=== PATIENT | female | born 2000 | race Caucasian/White ===

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

== ENCOUNTER 2020-12-12 05:19 | Emergency (ER) | payer BC, MEDICAID, SELFPAY ==
[~2020-12-12] VITALS: Ht 157.5 cm; Wt 88.2 kg
[~2020-12-12 05:19] MED LIST changes: -CIPR0.3S AS; +CIPR0.3S6 AS; +MAPA500T2 PO; +ONDA-83 PO; -ONDA4TAB5 PO
[2020-12-12] MEDS ORDERED: ACETAMINOPHEN *IV* 1,000 MG in IV 1 EA IV ONE (05:40)
[2020-12-12 05:53] LABS: BASO % 0.2 % (0.0-1.0); EOS # 0.1 10^3/uL (0.0-0.5); EOS % 1.3 % (0.0-3.0); HEMATOCRIT 41.2 % (36.0-47.0); HEMOGLOBIN 13.7 g/dl (12.0-15.5); LYMPH # 1.4 10^3/uL (1.5-5.0); LYMPH % 12.6 % (24.0-44.0); MEAN CORPUSCULAR HEMOGLOBIN 29.1 pg (27.0-33.0); MEAN CORPUSCULAR HGB CONC 33.3 g/dl (32.0-36.5); MEAN CORPUSCULAR VOLUME 87.5 fl (80.0-96.0); MONO # 1.2 10^3/uL (0.0-0.8); NEUTROPHILS # 8.2 10^3/uL (1.5-8.5); NEUTROPHILS % 74.5 % (36.0-66.0); PLATELET COUNT, AUTOMATED 318 10^3/uL (150-450); RED BLOOD COUNT 4.71 10^6/uL (4.00-5.40)
[2020-12-12 06:28] LABS: ALBUMIN 3.7 GM/DL (3.2-5.2); ALT/SGPT 25 U/L (12-78); BILIRUBIN,DIRECT 0.2 MG/DL (0.0-0.2); BILIRUBIN,TOTAL 0.6 MG/DL (0.2-1.0); BLOOD UREA NITROGEN 11 MG/DL (7-18); CALCIUM LEVEL 8.8 MG/DL (8.5-10.1); CARBON DIOXIDE LEVEL 25 MEQ/L (21-32); CHLORIDE LEVEL 106 MEQ/L (98-107); CREATININE FOR GFR 0.51 MG/DL (0.55-1.30); GLUCOSE, FASTING 101 MG/DL (70-100); LIPASE 77 U/L (73-393); POTASSIUM SERUM 3.7 MEQ/L (3.5-5.1); SODIUM LEVEL 138 MEQ/L (136-145); TOTAL PROTEIN 7.1 GM/DL (6.4-8.2)
[2020-12-12 07:00] VITALS: BP 118/73
--- NOTE | 2020-12-12 07:22 | REPVR ---
PROCEDURE INFORMATION: Exam: XR Chest Exam date and time: 12/12/2020 6:30 AM Age: 20 years old Clinical indication: Other: Chest pain, vomiting TECHNIQUE: Imaging protocol: XR of the chest Views: 1 view. COMPARISON: No relevant prior studies available. FINDINGS: Lungs: Unremarkable. No consolidation. Pleural spaces: Unremarkable. No pleural effusion. No pneumothorax. Heart/Mediastinum: Unremarkable. No cardiomegaly. Bones/joints: Unremarkable. IMPRESSION: No evidence for acute pulmonary disease. Electronically signed by: Severo Rosado On 12/12/2020 07:22:27 AM
--- NOTE | 2020-12-12 07:42 | ECGEPIP ---
[facility] - ED Test Date: 2020-12-12 Pat Name: FRANSISCO OCONNELL Department: Room: - Gender: Female Hand Inspector: MARY : 2000 Requested By: Fransisco Christianson Order Number: [id number] Reading MD: Soraida Ansari Measurements Intervals Purvis Rate: 104 P: 50 NM: 144 QRS: 66 QRSD: 76 T: 34 QT: 344 QTc: 452 Interpretive Statements Sinus tachycardia No prior Electronically Signed on 12-12-2020 7:42:07 EDT by Soraida Ansari
== END 2020-12-12 06:50 | disposition home or self-care (01) ==
LOC: M ED 05:19
DX: O99.891 Other specified diseases and conditions complicating pregnancy (principal); R07.89 Other chest pain; O99.341 Other mental disorders complicating pregnancy, first trimester; F39 Unspecified mood [affective] disorder; Z91.048 Other nonmedicinal substance allergy status; Z91.040 Latex allergy status; Z91.018 Allergy to other foods; Z3A.10 10 weeks gestation of pregnancy
CPT/HCPCS: 36415; 71045; 80048; 80076; 83690; 84484; 85025; 85379; 93005; 93041; 94760; 96365; 99284; J0131

== ENCOUNTER 2021-01-05 12:24 | Emergency (ER) | payer BC, SELFPAY ==
[~2021-01-05] VITALS: Ht 157.5 cm; Wt 91.8 kg
[2021-01-05] MEDS ORDERED: MULTTAB20 PO (12:38)
[2021-01-05 13:30] LABS: APPEARANCE, URINE HAZY (CLEAR); BACTERIA, URINE AUTO NEGATIVE (NEGATIVE); BASO % 0.5 % (0.0-1.0); BILIRUBIN, URINE AUTO NEGATIVE (NEGATIVE); BLOOD, URINE BLOOD 3+ (NEGATIVE); COLOR, URINE YELLOW (YELLOW); EOS # 0.2 10^3/uL (0.0-0.5); EOS % 2.2 % (0.0-3.0); GLUCOSE, URINE (UA) AUTO NEGATIVE (NEGATIVE); HEMATOCRIT 41.2 % (36.0-47.0); HEMOGLOBIN 13.7 g/dl (12.0-15.5); KETONE, URINE AUTO NEGATIVE (NEGATIVE); LEUKOCYTE ESTERASE, URINE AUTO NEGATIVE (NEGATIVE); LYMPH # 1.8 10^3/uL (1.5-5.0); LYMPH % 24.2 % (24.0-44.0); MEAN CORPUSCULAR HEMOGLOBIN 29.3 pg (27.0-33.0); MEAN CORPUSCULAR HGB CONC 33.3 g/dl (32.0-36.5); MEAN CORPUSCULAR VOLUME 88.2 fl (80.0-96.0); MONO # 0.5 10^3/uL (0.0-0.8); MONO % 7.1 % (2.0-8.0); MUCUS, URINE LARGE (NEGATIVE); NEUTROPHILS # 4.8 10^3/uL (1.5-8.5); NEUTROPHILS % 65.6 % (36.0-66.0); NITRITE, URINE AUTO NEGATIVE (NEGATIVE); PLATELET COUNT, AUTOMATED 315 10^3/uL (150-450); PROTEIN, URINE AUTO NEGATIVE (NEGATIVE); RBC, URINE AUTO 64 /HPF (0-3); RED BLOOD COUNT 4.67 10^6/uL (4.00-5.40); SPECIFIC GRAVITY URINE AUTO 1.026 (1.002-1.035); SQUAMOUS EPITHELIAL CELL UR AU 2 /HPF (0-6); UROBILINOGEN, URINE AUTO 0.2 mg/dL (0.0-2.0); WBC, URINE AUTO 1 /HPF (0-3); WHITE BLOOD COUNT 7.4 10^3/uL (4.0-10.0)
[2021-01-05 13:51] LABS: BLOOD UREA NITROGEN 12 MG/DL (7-18); CALCIUM LEVEL 9.1 MG/DL (8.5-10.1); CARBON DIOXIDE LEVEL 25 MEQ/L (21-32); CHLORIDE LEVEL 109 MEQ/L (98-107); CREATININE FOR GFR 0.51 MG/DL (0.55-1.30); GLUCOSE, FASTING 91 MG/DL (70-100); POTASSIUM SERUM 4.1 MEQ/L (3.5-5.1); SODIUM LEVEL 140 MEQ/L (136-145)
[2021-01-05 14:15] LABS: HCG, SERUM QUANTITATIVE < 1.0 MIU/ML
[2021-01-05 15:09] VITALS: BP 119/67
== END 2021-01-05 15:17 | disposition home or self-care (01) ==
LOC: M ED 12:24
DX: N93.8 Other specified abnormal uterine and vaginal bleeding (principal); Z91.018 Allergy to other foods; Z91.040 Latex allergy status; Z91.048 Other nonmedicinal substance allergy status

== ENCOUNTER → 2021-09-22 | Outpatient (CLI) | payer BC ==
[~2021-09-22] MED LIST changes: +MULTTAB20 PO
== END ==
LOC: M LABSMTC 12:39
PROVIDERS: ATTEND Pediatrics
DX: Z11.52 Encounter for screening for COVID-19 (principal); Z20.822 Contact with and (suspected) exposure to COVID-19
CPT/HCPCS: C9803; U0003

== ENCOUNTER 2021-11-10 18:29 | Emergency (ER) | payer BC ==
[~2021-11-10] VITALS: Ht 165.1 cm; Wt 98.7 kg
[2021-11-10 21:53] LABS: URINE PREG TEST NEGATIVE (NEGATIVE)
[2021-11-10 22:07] LABS: HEMATOCRIT 41.9 % (36.0-47.0); HEMOGLOBIN 13.8 g/dl (12.0-15.5); MEAN CORPUSCULAR HEMOGLOBIN 29.6 pg (27.0-33.0); MEAN CORPUSCULAR HGB CONC 32.9 g/dl (32.0-36.5); MEAN CORPUSCULAR VOLUME 89.7 fl (80.0-96.0); PLATELET COUNT, AUTOMATED 318 10^3/uL (150-450); RED BLOOD COUNT 4.67 10^6/uL (4.00-5.40); WHITE BLOOD COUNT 8.5 10^3/uL (4.0-10.0)
[2021-11-10 22:48] VITALS: BP 124/70
[2021-11-10] MEDS ORDERED: BACTRIM 160MG/800MG DS TAB PO ONE (23:30)
[2021-11-10] MEDS ORDERED: BACT800T5 PO (23:33)
[2021-11-11 00:24] LABS: GC DNA AMPLIFICATION NEGATIVE (NEGATIVE)
== END 2021-11-10 23:50 | disposition home or self-care (01) ==
LOC: M ED 18:29
DX: N39.0 Urinary tract infection, site not specified (principal); J45.909 Unspecified asthma, uncomplicated; F33.9 Major depressive disorder, recurrent, unspecified; F41.9 Anxiety disorder, unspecified; E66.9 Obesity, unspecified; Z91.018 Allergy to other foods; Z91.040 Latex allergy status; Z91.048 Other nonmedicinal substance allergy status; Z77.098 Contact with and (suspected) exposure to other hazardous, chiefly nonmedicinal, chemicals; F12.20 Cannabis dependence, uncomplicated

== ENCOUNTER 2022-01-30 20:17 | Emergency (ER) | payer BC ==
[~2022-01-30] VITALS: Ht 157.5 cm; Wt 93.1 kg
[~2022-01-30 20:17] MED LIST changes: +BACT800T5 PO
[2022-01-30 20:19] VITALS: BP 152/80
[2022-01-30 22:31] LABS: HEMATOCRIT 41.9 % (36.0-47.0); HEMOGLOBIN 13.7 g/dl (12.0-15.5); MEAN CORPUSCULAR HGB CONC 32.7 g/dl (32.0-36.5); MEAN CORPUSCULAR VOLUME 91.9 fl (80.0-96.0); PLATELET COUNT, AUTOMATED 328 10^3/uL (150-450); RED BLOOD COUNT 4.56 10^6/uL (4.00-5.40); WHITE BLOOD COUNT 10.4 10^3/uL (4.0-10.0)
[2022-01-30 23:00] LABS: BLOOD UREA NITROGEN 7 MG/DL (7-18); CALCIUM LEVEL 9.3 MG/DL (8.5-10.1); CARBON DIOXIDE LEVEL 30 MEQ/L (21-32); CHLORIDE LEVEL 109 MEQ/L (98-107); CREATININE FOR GFR 0.66 MG/DL (0.55-1.30); GLOMERULAR FILTRATION RATE > 60.0 (>60); GLUCOSE, FASTING 85 MG/DL (70-100); POTASSIUM SERUM 4.1 MEQ/L (3.5-5.1); SODIUM LEVEL 141 MEQ/L (136-145)
[2022-01-31] LABS: GC DNA AMPLIFICATION NEGATIVE (NEGATIVE)
== END 2022-01-31 00:14 | disposition left against medical advice (07) ==
LOC: M ED 20:17
DX: Z53.29 Procedure and treatment not carried out because of patient's decision for other reasons (principal)

== ENCOUNTER 2022-06-14 14:03 | Emergency (ER) | payer BC ==
[~2022-06-14] VITALS: Ht 157.5 cm; Wt 95.5 kg
[2022-06-14 15:37] LABS: RSV AMPLIFICATION NEGATIVE (NEGATIVE)
[2022-06-14] MEDS ORDERED: ACETAMINOPHEN 500 MG TAB PO ONE (19:00)
[2022-06-14] MEDS ORDERED: BENZONATATE 100MG CAPSULE PO ONE (19:00)
[2022-06-14 20:11] LABS: BASO # 0.1 10^3/uL (0.0-0.2); BASO % 0.5 % (0.0-1.0); EOS # 0.7 10^3/uL (0.0-0.5); EOS % 5.7 % (0.0-3.0); HEMATOCRIT 39.8 % (36.0-47.0); HEMOGLOBIN 13.3 g/dl (12.0-15.5); LYMPH # 2.3 10^3/uL (1.5-5.0); LYMPH % 19.3 % (24.0-44.0); MEAN CORPUSCULAR HEMOGLOBIN 29.7 pg (27.0-33.0); MEAN CORPUSCULAR HGB CONC 33.4 g/dl (32.0-36.5); MEAN CORPUSCULAR VOLUME 88.8 fl (80.0-96.0); MONO # 0.7 10^3/uL (0.0-0.8); MONO % 5.8 % (2.0-8.0); NEUTROPHILS % 68.2 % (36.0-66.0); PLATELET COUNT, AUTOMATED 388 10^3/uL (150-450); RED BLOOD COUNT 4.48 10^6/uL (4.00-5.40); WHITE BLOOD COUNT 11.7 10^3/uL (4.0-10.0)
[2022-06-14 20:30] LABS: ALBUMIN 3.9 GM/DL (3.2-5.2); ALT/SGPT 20 U/L (12-78); BILIRUBIN,TOTAL 0.5 MG/DL (0.2-1.0); BLOOD UREA NITROGEN 8 MG/DL (7-18); CALCIUM LEVEL 9.3 MG/DL (8.5-10.1); CARBON DIOXIDE LEVEL 28 MEQ/L (21-32); CHLORIDE LEVEL 106 MEQ/L (98-107); CREATININE FOR GFR 0.61 MG/DL (0.55-1.30); GLOMERULAR FILTRATION RATE > 60.0 (>60); GLUCOSE, FASTING 84 MG/DL (70-100); MAGNESIUM LEVEL 2.4 MG/DL (1.8-2.4); POTASSIUM SERUM 3.9 MEQ/L (3.5-5.1); SODIUM LEVEL 138 MEQ/L (136-145); TOTAL PROTEIN 7.8 GM/DL (6.4-8.2)
[2022-06-14 20:31] LABS: CK-MB VALUE MASS < 1.0 NG/ML (<3.6); CPK CREATINE PHOSPHOKINASE 63 U/L (26-192); MB/CK RELATIVE INDEX 1.59 (< OR =4)
[2022-06-14 20:37] VITALS: BP 123/68
[2022-06-14 20:38] VITALS: O2SAT 96
[2022-06-14] MEDS ORDERED: ISOVUE-370 76% 100ML VIAL As Ordered ONE (20:59)
[2022-06-14] MEDS ORDERED: PROAAER10 INH (21:58)
[2022-06-14] MEDS ORDERED: BENZ-18 PO (21:58)
[2022-06-14] MEDS ORDERED: IBUP-1022 PO (22:02)
== END 2022-06-14 22:28 | disposition home or self-care (01) ==
LOC: M ED 14:03
DX: J06.9 Acute upper respiratory infection, unspecified (principal); B34.8 Other viral infections of unspecified site; F17.200 Nicotine dependence, unspecified, uncomplicated; J45.909 Unspecified asthma, uncomplicated; Z79.51 Long term (current) use of inhaled steroids; Z79.899 Other long term (current) drug therapy; Z91.018 Allergy to other foods; Z91.040 Latex allergy status; Z91.048 Other nonmedicinal substance allergy status
CPT/HCPCS: 71046; 71275; 80053; 81000; 81015; 82550; 82553; 83735; 84484; 84702; 85025; 85379; 86618; 87086; 87486; 87581; 87631; 87633; 87798; 87880; 93005; 99284; Q9967

== ENCOUNTER 2022-09-21 10:19 | Emergency (ER) | payer BC ==
[~2022-09-21] VITALS: Ht 157.5 cm; Wt 96.8 kg
[~2022-09-21 10:19] MED LIST changes: +BENZ-18 PO; +IBUP-1022 PO; +PROAAER10 INH
[2022-09-21 12:51] LABS: BASO % 0.3 % (0.0-1.0); EOS % 0.2 % (0.0-3.0); HEMATOCRIT 41.4 % (36.0-47.0); HEMOGLOBIN 14.2 g/dl (12.0-15.5); LYMPH # 1.6 10^3/uL (1.5-5.0); LYMPH % 12.4 % (24.0-44.0); MEAN CORPUSCULAR HEMOGLOBIN 29.9 pg (27.0-33.0); MEAN CORPUSCULAR HGB CONC 34.3 g/dl (32.0-36.5); MEAN CORPUSCULAR VOLUME 87.2 fl (80.0-96.0); MONO # 0.8 10^3/uL (0.0-0.8); NEUTROPHILS # 10.4 10^3/uL (1.5-8.5); NEUTROPHILS % 80.4 % (36.0-66.0); PLATELET COUNT, AUTOMATED 400 10^3/uL (150-450); RED BLOOD COUNT 4.75 10^6/uL (4.00-5.40)
[2022-09-21] MEDS ORDERED: NS 1,000 ML IV ONE ×2 (13:15→14:00)
[2022-09-21] MEDS ORDERED: HALOPERIDOL 5MG/ML 1ML VIAL IV ONE (13:15)
[2022-09-21 13:17] LABS: LIPASE 27 U/L (12-53)
[2022-09-21 13:19] LABS: ALBUMIN 4.2 G/DL (3.2-5.2); ALKALINE PHOSPHATASE 69 U/L (46-116); ALT/SGPT 17 U/L (7.0-40); AST/SGOT 20 U/L (<34); BILIRUBIN,DIRECT 0.5 MG/DL (<0.4); BILIRUBIN,TOTAL 1.5 MG/DL (0.3-1.2); BLOOD UREA NITROGEN 15 MG/DL (9-23); CALCIUM LEVEL 9.6 MG/DL (8.5-10.1); CARBON DIOXIDE LEVEL 18 MMOL/L (20-31); CHLORIDE LEVEL 105 MMOL/L (98-107); CREATININE FOR GFR 0.66 MG/DL (0.55-1.30); GLOMERULAR FILTRATION RATE > 60.0 (>60); GLUCOSE, FASTING 110 MG/DL (60-100); POTASSIUM SERUM 3.7 MMOL/L (3.5-5.1); SODIUM LEVEL 139 MMOL/L (136-145); TOTAL PROTEIN 7.6 G/DL (5.7-8.2)
[2022-09-21 13:25] LABS: HCG, SERUM QUALITATIVE NEGATIVE (NEGATIVE)
[2022-09-21] MEDS ORDERED: diphenhydrAMINE 50MG/ML VIAL IV STA (13:58)
[2022-09-21] MEDS ORDERED: REGL10TA6 PO (14:41)
[2022-09-21 14:54] VITALS: BP 138/71
== END 2022-09-21 15:03 | disposition home or self-care (01) ==
LOC: M ED 10:19
DX: F12.288 Cannabis dependence with other cannabis-induced disorder (principal); R11.10 Vomiting, unspecified; F41.8 Other specified anxiety disorders; Z91.040 Latex allergy status; Z79.51 Long term (current) use of inhaled steroids; Z79.1 Long term (current) use of non-steroidal anti-inflammatories (NSAID)

== ENCOUNTER 2022-12-12 16:09 | Emergency (ER) | payer BC ==
[~2022-12-12] VITALS: Ht 157.5 cm; Wt 90.9 kg
[~2022-12-12 16:09] MED LIST changes: +REGL10TA6 PO
[2022-12-12] MEDS ORDERED: NS 1,000 ML IV ONE (18:15)
[2022-12-12] MEDS ORDERED: PANTOPRAZOLE 40MG VIAL IV ONE (18:15)
[2022-12-12 18:50] LABS: BASO % 0.2 % (0.0-1.0); EOS % 0.1 % (0.0-3.0); HEMATOCRIT 44.3 % (36.0-47.0); HEMOGLOBIN 14.9 g/dl (12.0-15.5); LYMPH # 0.8 10^3/uL (1.5-5.0); LYMPH % 6.3 % (24.0-44.0); MEAN CORPUSCULAR HEMOGLOBIN 29.7 pg (27.0-33.0); MEAN CORPUSCULAR HGB CONC 33.6 g/dl (32.0-36.5); MEAN CORPUSCULAR VOLUME 88.2 fl (80.0-96.0); MONO # 0.3 10^3/uL (0.0-0.8); MONO % 2.7 % (2.0-8.0); NEUTROPHILS # 11.2 10^3/uL (1.5-8.5); NEUTROPHILS % 89.8 % (36.0-66.0); PLATELET COUNT, AUTOMATED 405 10^3/uL (150-450); RED BLOOD COUNT 5.02 10^6/uL (4.00-5.40); WHITE BLOOD COUNT 12.5 10^3/uL (4.0-10.0)
[2022-12-12 19:16] LABS: LIPASE 22 U/L (12-53)
[2022-12-12 19:20] LABS: ALBUMIN 4.5 G/DL (3.2-5.2); ALKALINE PHOSPHATASE 83 U/L (46-116); ALT/SGPT 19 U/L (7.0-40); AST/SGOT 26 U/L (<34); BILIRUBIN,DIRECT 0.3 MG/DL (<0.4); BILIRUBIN,TOTAL 1.2 MG/DL (0.3-1.2); BLOOD UREA NITROGEN 13 MG/DL (9-23); CALCIUM LEVEL 9.6 MG/DL (8.5-10.1); CARBON DIOXIDE LEVEL 21 MMOL/L (20-31); CHLORIDE LEVEL 103 MMOL/L (98-107); GLOMERULAR FILTRATION RATE > 60.0 (>60); GLUCOSE, FASTING 120 MG/DL (60-100); POTASSIUM SERUM 4.2 MMOL/L (3.5-5.1); SODIUM LEVEL 138 MMOL/L (136-145); TOTAL PROTEIN 7.9 G/DL (5.7-8.2)
[2022-12-12 19:23] LABS: HCG, SERUM QUALITATIVE NEGATIVE (NEGATIVE)
[2022-12-12 19:39] LABS: RSV AMPLIFICATION NEGATIVE (NEGATIVE)
[2022-12-12] MEDS ORDERED: ALBUTEROL 90 MCG/ACT 8GM HFA INHALER INH ONE (20:25)
[2022-12-12] MEDS ORDERED: PROMETHAZINE 25MG/ML 1ML VIAL IV ONE (20:25)
[2022-12-12] MEDS ORDERED: PROM25TA12 PO (20:36)
[2022-12-12 21:03] VITALS: BP 159/76
== END 2022-12-12 21:29 | disposition home or self-care (01) ==
LOC: EDBD 16:09 → M ED 16:09
DX: R11.15 Cyclical vomiting syndrome unrelated to migraine (principal); F12.10 Cannabis abuse, uncomplicated
CPT/HCPCS: 71045; 76705; 80047; 80048; 80076; 83690; 84703; 85025; 87631; 94640; 96374; 96375; 99284; C9113; J2550

== ENCOUNTER 2022-12-14 10:47 | Emergency (ER) | payer BC ==
[~2022-12-14] VITALS: Ht 160 cm; Wt 94.1 kg
[~2022-12-14 10:47] MED LIST changes: +PROM25TA12 PO
[2022-12-14] MEDS ORDERED: METOCLOPRAMIDE INJ 10MG/2ML VIAL IV ONE (10:55)
[2022-12-14] MEDS ORDERED: NS 1,000 ML IV ONE (10:55)
[2022-12-14 12:13] LABS: BASO # 0.1 10^3/uL (0.0-0.2); BASO % 0.8 % (0.0-1.0); EOS # 0.2 10^3/uL (0.0-0.5); EOS % 2.4 % (0.0-3.0); HEMATOCRIT 41.8 % (36.0-47.0); LYMPH # 1.4 10^3/uL (1.5-5.0); LYMPH % 14.6 % (24.0-44.0); MEAN CORPUSCULAR HEMOGLOBIN 29.4 pg (27.0-33.0); MEAN CORPUSCULAR HGB CONC 33.5 g/dl (32.0-36.5); MEAN CORPUSCULAR VOLUME 87.8 fl (80.0-96.0); MONO # 0.6 10^3/uL (0.0-0.8); MONO % 5.9 % (2.0-8.0); NEUTROPHILS # 7.5 10^3/uL (1.5-8.5); NEUTROPHILS % 75.7 % (36.0-66.0); PLATELET COUNT, AUTOMATED 369 10^3/uL (150-450); RED BLOOD COUNT 4.76 10^6/uL (4.00-5.40); WHITE BLOOD COUNT 9.9 10^3/uL (4.0-10.0)
[2022-12-14 12:32] LABS: LIPASE 22 U/L (12-53)
[2022-12-14 12:34] LABS: AMYLASE 43 U/L (30-118)
[2022-12-14 12:41] LABS: ALBUMIN 3.7 G/DL (3.2-5.2); ALKALINE PHOSPHATASE 67 U/L (46-116); ALT/SGPT 17 U/L (7.0-40); AST/SGOT 15 U/L (<34); BILIRUBIN,DIRECT 0.3 MG/DL (<0.4); BLOOD UREA NITROGEN 10 MG/DL (9-23); CALCIUM LEVEL 8.6 MG/DL (8.5-10.1); CARBON DIOXIDE LEVEL 21 MMOL/L (20-31); CHLORIDE LEVEL 108 MMOL/L (98-107); GLOMERULAR FILTRATION RATE > 60.0 (>60); GLUCOSE, FASTING 113 MG/DL (60-100); HCG, SERUM QUALITATIVE NEGATIVE (NEGATIVE); POTASSIUM SERUM 3.5 MMOL/L (3.5-5.1); SODIUM LEVEL 139 MMOL/L (136-145); TOTAL PROTEIN 6.5 G/DL (5.7-8.2)
[2022-12-14 13:24] LABS: RSV AMPLIFICATION NEGATIVE (NEGATIVE)
[2022-12-14] MEDS ORDERED: PROMETHAZINE 25MG/ML 1ML VIAL IV ONE (14:35)
[2022-12-14] MEDS ORDERED: ISOVUE-370 76% 100ML VIAL As Ordered ONE (14:42)
[2022-12-14 15:04] LABS: AMPHETAMINES LEVEL URINE NEGATIVE (NEGATIVE); BARBITURATES URINE NEGATIVE (NEGATIVE); COCAINE METABOLITE URINE NEGATIVE (NEGATIVE); METHADONE URINE NEGATIVE (NEGATIVE); OPIATES URINE NEGATIVE (NEGATIVE); PHENCYCLIDINE URINE NEGATIVE (NEGATIVE)
[2022-12-14 15:05] LABS: BENZODIAZEPINES URINE NEGATIVE (NEGATIVE)
[2022-12-14 15:07] LABS: CANNABINOIDS URINE POSITIVE (NEGATIVE)
[2022-12-14 17:07] VITALS: BP 146/72
[2022-12-15] MEDS ORDERED: VENTAER INH (16:31)
[2022-12-15] MEDS ORDERED: ALBU2.5V10 INH (16:31)
[2022-12-15] MEDS ORDERED: PROM25TA12 PO (16:31)
== END 2022-12-14 17:13 | disposition home or self-care (01) ==
LOC: EDBD 10:47 → M ED 10:47
DX: R11.15 Cyclical vomiting syndrome unrelated to migraine (principal); Z91.040 Latex allergy status; Z88.8 Allergy status to other drugs, medicaments and biological substances; Z91.018 Allergy to other foods
CPT/HCPCS: 74177; 80048; 80076; 80307; 82150; 83605; 83690; 83735; 84703; 85025; 87040; 87077; 87631; 93005; 93041; 96374; 99285; J2550; J2765; Q9967

== ENCOUNTER 2022-12-15 11:46 | Observation (INO) | payer BC ==
[~2022-12-15] VITALS: Ht 157.5 cm; Wt 94.0 kg
[2022-12-15] MEDS ORDERED: NS 1,000 ML IV ONE (12:10)
[2022-12-15] MEDS ORDERED: PROMETHAZINE 25MG/ML 1ML VIAL IV ONE (12:25)
[2022-12-15 12:42] LABS: BASO % 0.4 % (0.0-1.0); EOS % 0.2 % (0.0-3.0); HEMATOCRIT 42.3 % (36.0-47.0); HEMOGLOBIN 14.6 g/dl (12.0-15.5); LYMPH # 1.4 10^3/uL (1.5-5.0); LYMPH % 14.3 % (24.0-44.0); MEAN CORPUSCULAR HEMOGLOBIN 30.2 pg (27.0-33.0); MEAN CORPUSCULAR HGB CONC 34.5 g/dl (32.0-36.5); MEAN CORPUSCULAR VOLUME 87.6 fl (80.0-96.0); MONO # 0.5 10^3/uL (0.0-0.8); MONO % 4.6 % (2.0-8.0); NEUTROPHILS # 7.9 10^3/uL (1.5-8.5); NEUTROPHILS % 79.9 % (36.0-66.0); PLATELET COUNT, AUTOMATED 411 10^3/uL (150-450); RED BLOOD COUNT 4.83 10^6/uL (4.00-5.40); WHITE BLOOD COUNT 9.9 10^3/uL (4.0-10.0)
[2022-12-15 13:07] LABS: LIPASE 25 U/L (12-53)
[2022-12-15 13:09] LABS: AMYLASE 48 U/L (30-118)
[2022-12-15 13:19] LABS: ALBUMIN 4.1 G/DL (3.2-5.2); ALKALINE PHOSPHATASE 70 U/L (46-116); ALT/SGPT 17 U/L (7.0-40); AST/SGOT 21 U/L (<34); BILIRUBIN,DIRECT 0.3 MG/DL (<0.4); BLOOD UREA NITROGEN 9 MG/DL (9-23); CALCIUM LEVEL 9.1 MG/DL (8.5-10.1); CARBON DIOXIDE LEVEL 24 MMOL/L (20-31); CHLORIDE LEVEL 104 MMOL/L (98-107); CREATININE FOR GFR 0.59 MG/DL (0.55-1.30); GLOMERULAR FILTRATION RATE > 60.0 (>60); GLUCOSE, FASTING 110 MG/DL (60-100); POTASSIUM SERUM 3.9 MMOL/L (3.5-5.1); SODIUM LEVEL 137 MMOL/L (136-145)
[2022-12-15 13:45] LABS: RSV AMPLIFICATION NEGATIVE (NEGATIVE)
[2022-12-15] MEDS ORDERED: HALOPERIDOL 5MG/ML 1ML VIAL IV PRN (15:40)
[2022-12-15] MEDS ORDERED: hydrALAZINE 20MG/ML 1ML VIAL IV PRN (15:40)
[2022-12-15] MEDS: NS 1,000 ML IV SCH ×2 (16:17→23:31)
[2022-12-15] MEDS ORDERED: ALBU2.5V10 INH (16:31)
[2022-12-15] MEDS ORDERED: PROM25TA12 PO (16:31)
[2022-12-15] MEDS ORDERED: VENTAER INH (16:31)
[2022-12-15] MEDS ORDERED: HOME MED LIST COMPLETE! XX SCH (16:35)
[2022-12-15] MEDS: PROMETHAZINE 25MG/ML 1ML VIAL IV SCH ×2 (17:56→23:31)
[2022-12-15] MEDS ORDERED: **hydrALAZINE HCL** 25 MG TAB PO PRN (18:40)
[2022-12-15 19:21] VITALS: BP 120/60
[2022-12-15 20:00] VITALS: BP 119/84
[2022-12-16 06:00] VITALS: BP 130/80
[2022-12-16] MEDS: NS 1,000 ML IV SCH (06:04)
[2022-12-16] MEDS: PROMETHAZINE 25MG/ML 1ML VIAL IV SCH (06:04)
[2022-12-16 06:20] LABS: HEMATOCRIT 39.5 % (36.0-47.0); HEMOGLOBIN 13.3 g/dl (12.0-15.5); MEAN CORPUSCULAR HEMOGLOBIN 29.8 pg (27.0-33.0); MEAN CORPUSCULAR HGB CONC 33.7 g/dl (32.0-36.5); MEAN CORPUSCULAR VOLUME 88.4 fl (80.0-96.0); PLATELET COUNT, AUTOMATED 351 10^3/uL (150-450); RED BLOOD COUNT 4.47 10^6/uL (4.00-5.40)
[2022-12-16 06:43] LABS: BLOOD UREA NITROGEN 6 MG/DL (9-23); CALCIUM LEVEL 8.4 MG/DL (8.5-10.1); CARBON DIOXIDE LEVEL 23 MMOL/L (20-31); CHLORIDE LEVEL 109 MMOL/L (98-107); CREATININE FOR GFR 0.52 MG/DL (0.55-1.30); GLOMERULAR FILTRATION RATE > 60.0 (>60); GLUCOSE, FASTING 88 MG/DL (60-100); POTASSIUM SERUM 3.6 MMOL/L (3.5-5.1); SODIUM LEVEL 140 MMOL/L (136-145)
[2022-12-16] MEDS ORDERED: PROMETHAZINE 25 MG TAB PO PRN (07:50)
[2022-12-16] MEDS ORDERED: POTASSIUM CHLORIDE 10MEQ SR TABLET PO ONE (08:00)
[2022-12-16] MEDS ORDERED: amLODIPine 5 MG TAB PO SCH (09:00)
[2022-12-16] MEDS ORDERED: ENOXAPARIN 40MG/0.4ML SYRINGE (J1650 PER 10MG) SC SCH (09:00)
[2022-12-16 14:00] VITALS: BP 118/72
[2022-12-16] MEDS ORDERED: PROM25TA12 PO (16:29)
[2022-12-16] MEDS ORDERED: AMLO1TAB24 PO (16:29)
[2022-12-16 20:25] VITALS: BP 132/90
[2022-12-16] MEDS ORDERED: IPRATROPIUM 0.5MG/ALBUTEROL 2.5MG INH SOL UD 3ML (DUONEB) NEB ONE (21:00)
== END 2022-12-16 21:34 ==
LOC: EDBD 11:46 → M ED 11:46 → M ED INP 11:47 → M MSPAV 19:08
PROVIDERS: ADMIT Internal Medicine; ATTEND Internal Medicine
DX: R11.15 Cyclical vomiting syndrome unrelated to migraine (principal); R03.0 Elevated blood-pressure reading, without diagnosis of hypertension; R45.851 Suicidal ideations; F33.1 Major depressive disorder, recurrent, moderate; F41.1 Generalized anxiety disorder; F43.10 Post-traumatic stress disorder, unspecified; F12.10 Cannabis abuse, uncomplicated; Z91.040 Latex allergy status; Z91.018 Allergy to other foods
CPT/HCPCS: 36415; 80048; 80076; 82150; 83690; 83735; 85025; 85027; 87631; 93005; 94640; 96361; 96374; 96375; 96376; 99284; J2550

== ENCOUNTER 2022-12-16 17:40 | Inpatient (IN) | payer BC ==
[~2022-12-16] VITALS: Ht 157.5 cm; Wt 92.0 kg
[~2022-12-16 17:40] MED LIST changes: +ALBU2.5V10 INH; +AMLO1TAB24 PO; +CIPR0.3S37 AS; -CIPR0.3S6 AS
[2022-12-16] MEDS ORDERED: MOM 30ML SUSPENSION UDC PO PRN (18:00)
[2022-12-16] MEDS ORDERED: IBUPROFEN 400MG TAB PO PRN (18:00)
[2022-12-16] MEDS ORDERED: MAALOX 30 ML SUSP *UDC PO PRN (18:00)
[2022-12-16] MEDS ORDERED: ACETAMINOPHEN TAB 650MG DOSE (2X325MG) PO PRN (18:00)
[2022-12-16] MEDS ORDERED: NICOTINE 21MG/24HR 1 EA TRANSDERMAL TD PRN (18:00)
[2022-12-16] MEDS ORDERED: HOME MED LIST COMPLETE! XX SCH (21:50)
[2022-12-16 22:19] VITALS: BP 132/79
[2022-12-16] MEDS: traZODone 50 MG TAB PO PRN (22:29)
[2022-12-16] MEDS: diphenhydrAMINE 25MG CAP PO PRN (22:29)
[2022-12-17 07:05] VITALS: BP 129/60
[2022-12-17] MEDS: ESCITALOPRAM OXALATE 5MG TABLET (LEXAPRO) PO SCH (10:02)
[2022-12-17] MEDS: diphenhydrAMINE 25MG CAP PO PRN (15:09)
[2022-12-17] MEDS: ALBUTEROL 90 MCG/ACT 8GM HFA INHALER INH PRN ×2 (15:46→21:52)
[2022-12-17 16:44] VITALS: BP 139/83
[2022-12-17] MEDS: PROMETHAZINE 25 MG TAB PO PRN (22:17)
[2022-12-17] MEDS: traZODone 50 MG TAB PO PRN (22:17)
[2022-12-18 06:49] VITALS: BP 110/64
[2022-12-18] MEDS: ESCITALOPRAM OXALATE 5MG TABLET (LEXAPRO) PO SCH (09:41)
[2022-12-18] MEDS: PROMETHAZINE 25 MG TAB PO PRN (12:29)
[2022-12-18 18:04] VITALS: BP 130/66
[2022-12-18] MEDS: traZODone 25MG PER 1/2 TABLET PO PRN (21:33)
[2022-12-18] MEDS: diphenhydrAMINE 25MG CAP PO PRN (22:23)
[2022-12-19 06:07] VITALS: BP 137/75
[2022-12-19] MEDS: ESCITALOPRAM OXALATE 5MG TABLET (LEXAPRO) PO SCH (08:58)
[2022-12-19] MEDS: PROMETHAZINE 25 MG TAB PO PRN (18:06)
[2022-12-19 18:09] VITALS: BP 139/95
[2022-12-19] MEDS: traZODone 25MG PER 1/2 TABLET PO PRN (21:33)
[2022-12-20 06:25] VITALS: BP 135/81
[2022-12-20] MEDS: PROMETHAZINE 25 MG TAB PO PRN (07:50)
[2022-12-20] MEDS ORDERED: LEXA5TAB13 PO (08:46)
[2022-12-20] MEDS ORDERED: TRAZ-252 PO (08:46)
[2022-12-20] MEDS: ESCITALOPRAM OXALATE 5MG TABLET (LEXAPRO) PO SCH (09:01)
== END 2022-12-20 12:37 | disposition home or self-care (01) | DRG 751 ==
LOC: M PSY 21:40
PROVIDERS: ADMIT Psychiatry & Neurology Psychiatry; ATTEND Psychiatry & Neurology Psychiatry
DX: F33.2 Major depressive disorder, recurrent severe without psychotic features (principal); F43.10 Post-traumatic stress disorder, unspecified; R45.851 Suicidal ideations; F60.89 Other specific personality disorders; F41.1 Generalized anxiety disorder; R11.15 Cyclical vomiting syndrome unrelated to migraine; Z79.899 Other long term (current) drug therapy; Z91.040 Latex allergy status; Z91.048 Other nonmedicinal substance allergy status; Z91.018 Allergy to other foods; Z91.52 Personal history of nonsuicidal self-harm; Z81.8 Family history of other mental and behavioral disorders; Z81.4 Family history of other substance abuse and dependence; Z62.811 Personal history of psychological abuse in childhood; Z91.410 Personal history of adult physical and sexual abuse

== ENCOUNTER 2024-08-08 10:13 | Outpatient (CLI) | payer MEDICAID, OTHER ==
[~2024-08-08] VITALS: Ht 157.5 cm; Wt 79.0 kg
[~2024-08-08 10:13] MED LIST changes: +LEXA5TAB13 PO; +TRAZ-252 PO
[2024-08-08 10:39] VITALS: BP 119/68
[2024-08-08 12:24] LABS: BASO # 0.1 10^3/uL (0.0-0.2); BASO % 0.5 % (0.0-1.0); EOS # 0.1 10^3/uL (0.0-0.5); EOS % 0.8 % (0.0-3.0); HEMATOCRIT 34.2 % (36.0-47.0); HEMOGLOBIN 11.7 g/dl (12.0-15.5); LYMPH # 1.9 10^3/uL (1.5-5.0); LYMPH % 18.2 % (24.0-44.0); MEAN CORPUSCULAR HEMOGLOBIN 30.2 pg (27.0-33.0); MEAN CORPUSCULAR HGB CONC 34.2 g/dl (32.0-36.5); MEAN CORPUSCULAR VOLUME 88.1 fl (80.0-96.0); MONO # 0.5 10^3/uL (0.0-0.8); MONO % 4.7 % (2.0-8.0); NEUTROPHILS % 75.1 % (36.0-66.0); PLATELET COUNT, AUTOMATED 332 10^3/uL (150-450); RED BLOOD COUNT 3.88 10^6/uL (4.00-5.40); WHITE BLOOD COUNT 10.6 10^3/uL (4.0-10.0)
[2024-08-08 12:35] LABS: APPEARANCE, URINE HAZY (CLEAR); BACTERIA, URINE AUTO NEGATIVE (NEGATIVE); BILIRUBIN, URINE AUTO NEGATIVE (NEGATIVE); BLOOD, URINE BLOOD NEGATIVE (NEGATIVE); COLOR, URINE AMBER (YELLOW); GLUCOSE, URINE (UA) AUTO NEGATIVE (NEGATIVE); KETONE, URINE AUTO NEGATIVE (NEGATIVE); LEUKOCYTE ESTERASE, URINE AUTO 3+ (NEGATIVE); MUCUS, URINE LARGE (NEGATIVE); NITRITE, URINE AUTO NEGATIVE (NEGATIVE); PROTEIN, URINE AUTO 1+ mg/dL (NEGATIVE); RBC, URINE AUTO 3 /HPF (0-3); SPECIFIC GRAVITY URINE AUTO 1.026 (1.002-1.035); SQUAMOUS EPITHELIAL CELL UR AU 6 /HPF (0-6); WBC, URINE AUTO 13 /HPF (0-3)
[2024-08-08 12:56] LABS: ALBUMIN 2.9 G/DL (3.2-5.2); ALKALINE PHOSPHATASE 53 U/L (35-104); ALT/SGPT < 9 U/L (7.0-40); AST/SGOT < 8 U/L (<34); BILIRUBIN,TOTAL 0.5 MG/DL (0.3-1.2); BLOOD UREA NITROGEN 7 MG/DL (9-23); CALCIUM LEVEL 9.2 MG/DL (8.5-10.1); CARBON DIOXIDE LEVEL 22 MMOL/L (20-31); CHLORIDE LEVEL 104 MMOL/L (98-107); CREATININE FOR GFR 0.37 MG/DL (0.55-1.30); GLOMERULAR FILTRATION RATE > 60.0 (>60); GLUCOSE, FASTING 77 MG/DL (60-100); POTASSIUM SERUM 3.7 MMOL/L (3.5-5.1); SODIUM LEVEL 137 MMOL/L (136-145); TOTAL PROTEIN 6.7 G/DL (5.7-8.2)
[2024-08-08] MEDS: PROMETHAZINE 25MG SUPP PR ONE (13:15)
[2024-08-08] MEDS: AZITHROMYCIN 250MG TABLET PO ONE (14:01)
[2024-08-08] MEDS: METOCLOPRAMIDE 10MG TAB PO ONE (14:02)
[2024-08-08 14:21] LABS: Trichomonas vaginalis (AMP) NOT DETECTED (NEGATIVE)
[2024-08-08] MEDS ORDERED: ONDANSETRON 4MG ORAL DISINTEGRATING TAB PO ONE (14:35)
[2024-08-08 14:44] LABS: GC DNA AMPLIFICATION NEGATIVE (NEGATIVE)
[2024-08-08] MEDS: ONDANSETRON 4MG 2ML VIAL IV ONE (15:11)
[2024-08-08] MEDS: LR 1,000 ML IV ONE (15:11)
[2024-08-08] MEDS: METOCLOPRAMIDE INJ 10MG/2ML VIAL IV ONE (15:17)
[2024-08-08] MEDS: PROMETHAZINE 25MG/ML 1ML VIAL IV ONE (15:30)
[2024-08-08] MEDS: diphenhydrAMINE 50MG/ML VIAL IV ONE (15:32)
[2024-08-08 17:41] VITALS: BP 114/68
[2024-08-08] MEDS ORDERED: AZIT500T5 PO (17:45)
[2024-08-08] MEDS ORDERED: PROM1SUP2 PR (17:49)
[2024-08-08] MEDS ORDERED: ONDA-83 PO (17:49)
== END 2024-08-08 17:55 | disposition home or self-care (01) ==
LOC: M LDO 10:13
PROVIDERS: ATTEND Advanced Practice Midwife
DX: O26.892 Other specified pregnancy related conditions, second trimester (principal); M54.6 Pain in thoracic spine; O21.0 Mild hyperemesis gravidarum; A74.9 Chlamydial infection, unspecified; O98.312 Other infections with a predominantly sexual mode of transmission complicating pregnancy, second trimester; Z3A.19 19 weeks gestation of pregnancy
CPT/HCPCS: 36415; 76775; 80053; 81001; 85025; 87086; 87661; 87810; 87850; 96374; 96375; 96376; G0463; J1200; J2405; J2765

== ENCOUNTER 2024-09-05 18:41 | Inpatient (IN) | payer OTHER ==
[~2024-09-05] VITALS: Ht 157.5 cm; Wt 86.0 kg
[~2024-09-05 18:41] MED LIST changes: +AZIT500T5 PO; +PROM1SUP2 PR
[2024-09-05 19:14] LABS: BASO % 0.1 % (0.0-1.0); EOS % 0.1 % (0.0-3.0); HEMATOCRIT 33.5 % (36.0-47.0); HEMOGLOBIN 11.2 g/dl (12.0-15.5); LYMPH # 0.8 10^3/uL (1.5-5.0); LYMPH % 6.8 % (24.0-44.0); MEAN CORPUSCULAR HGB CONC 33.4 g/dl (32.0-36.5); MEAN CORPUSCULAR VOLUME 89.8 fl (80.0-96.0); MONO # 0.3 10^3/uL (0.0-0.8); NEUTROPHILS % 89.3 % (36.0-66.0); PLATELET COUNT, AUTOMATED 373 10^3/uL (150-450); RED BLOOD COUNT 3.73 10^6/uL (4.00-5.40); WHITE BLOOD COUNT 11.2 10^3/uL (4.0-10.0)
[2024-09-05 19:43] LABS: BLOOD UREA NITROGEN 7 MG/DL (9-23); CALCIUM LEVEL 8.7 MG/DL (8.5-10.1); CARBON DIOXIDE LEVEL 22 MMOL/L (20-31); CHLORIDE LEVEL 107 MMOL/L (98-107); GLOMERULAR FILTRATION RATE > 60.0 (>60); GLUCOSE, FASTING 105 MG/DL (60-100); POTASSIUM SERUM 3.6 MMOL/L (3.5-5.1); SODIUM LEVEL 141 MMOL/L (136-145)
[2024-09-05 19:46] LABS: FREE T4 1.07 NG/DL (0.89-1.76); THYROID STIMULATING HORMONE 1.324 uIU/ML (0.55-4.78)
[2024-09-05] MEDS: ACETAMINOPHEN *IV* 1,000 MG in IV 1 EA IV ONE (20:38)
[2024-09-05] MEDS: LR 1,000 ML IV ONE (20:39)
[2024-09-05 20:41] LABS: D-DIMER QUANT 0.61 ug/mL (<0.5); INR 1.1; PARTIAL THROMBOPLASTIN TIME 23.6 SECONDS (24.8-34.2); PROTHROMBIN TIME 14.5 SECONDS (12.5-14.5)
[2024-09-05 20:52] LABS: CK-MB VALUE MASS < 1.0 NG/ML (<3.6)
[2024-09-05 20:53] LABS: ALBUMIN 2.6 G/DL (3.2-5.2); ALKALINE PHOSPHATASE 68 U/L (35-104); ALT/SGPT < 9 U/L (7.0-40); AST/SGOT 8 U/L (<34); BILIRUBIN,DIRECT 0.1 MG/DL (<0.4); BILIRUBIN,TOTAL 0.4 MG/DL (0.3-1.2); CPK CREATINE PHOSPHOKINASE 53 U/L (34-145); MAGNESIUM LEVEL 1.8 MG/DL (1.8-2.4); MB/CK RELATIVE INDEX 1.88 (< OR =4); PHOSPHORUS LEVEL 2.7 MG/DL (2.5-4.9); TOTAL PROTEIN 6.1 G/DL (5.7-8.2)
[2024-09-05] MEDS: diphenhydrAMINE 50MG/ML VIAL IV ONE (21:06)
[2024-09-05] MEDS: METOCLOPRAMIDE INJ 10MG/2ML VIAL IV ONE (21:06)
[2024-09-05 21:51] LABS: GC DNA AMPLIFICATION NEGATIVE (NEGATIVE)
[2024-09-05 23:06] LABS: LIPASE 25 U/L (12-53)
[2024-09-05] MEDS: NS (Normal Saline) 0.9% 1,000 ML IV ONE (23:30)
[2024-09-05] MEDS: ONDANSETRON 4MG 2ML VIAL IV ONE (23:31)
[2024-09-06] MEDS: PROMETHAZINE 25MG/ML 1ML VIAL IV PRN (03:11)
[2024-09-06] MEDS: LR 1,000 ML IV SCH (03:11)
[2024-09-06 04:10] VITALS: BP 111/76; TEMP 96.8; O2SAT 99
[2024-09-06] MEDS: ONDANSETRON 4MG 2ML VIAL IV PRN (05:31)
[2024-09-06] MEDS ORDERED: ONDA-83 PO (05:31)
[2024-09-06] MEDS ORDERED: PROM50TA4 PO (05:31)
[2024-09-06] MEDS ORDERED: HOME MED LIST COMPLETE! XX SCH (05:35)
[2024-09-06] MEDS: METOCLOPRAMIDE INJ 10MG/2ML VIAL IV PRN (05:57)
[2024-09-06 07:55] LABS: HEMOGLOBIN 9.3 g/dl (12.0-15.5); MEAN CORPUSCULAR HEMOGLOBIN 29.9 pg (27.0-33.0); MEAN CORPUSCULAR HGB CONC 33.2 g/dl (32.0-36.5); PLATELET COUNT, AUTOMATED 332 10^3/uL (150-450); RED BLOOD COUNT 3.11 10^6/uL (4.00-5.40); WHITE BLOOD COUNT 10.3 10^3/uL (4.0-10.0)
[2024-09-06 08:22] LABS: ALBUMIN 2.3 G/DL (3.2-5.2); ALKALINE PHOSPHATASE 58 U/L (35-104); ALT/SGPT < 9 U/L (7.0-40); AST/SGOT 8 U/L (<34); BILIRUBIN,TOTAL 0.4 MG/DL (0.3-1.2); BLOOD UREA NITROGEN 6 MG/DL (9-23); CALCIUM LEVEL 8.2 MG/DL (8.5-10.1); CARBON DIOXIDE LEVEL 24 MMOL/L (20-31); CHLORIDE LEVEL 109 MMOL/L (98-107); CREATININE FOR GFR 0.37 MG/DL (0.55-1.30); GLOMERULAR FILTRATION RATE > 60.0 (>60); GLUCOSE, FASTING 114 MG/DL (60-100); POTASSIUM SERUM 3.4 MMOL/L (3.5-5.1); SODIUM LEVEL 142 MMOL/L (136-145); TOTAL PROTEIN 5.4 G/DL (5.7-8.2)
[2024-09-06] MEDS: ASPIRIN 81MG CHEW TABLET PO SCH (09:00)
[2024-09-06] MEDS: PRENATAL VITAMINS CHEWABLE TABLET PO SCH (09:00)
[2024-09-06] MEDS: THIAMINE 200MG 2ML VIAL IV SCH (12:01)
[2024-09-06] MEDS: FOLIC ACID 1MG/0.2ML VIAL SC SCH (12:01)
[2024-09-06] MEDS ORDERED: diphenhydrAMINE 25MG CAP PO PRN (15:40)
[2024-09-06] MEDS ORDERED: diphenhydrAMINE 50MG/ML VIAL IV PRN ×2 (16:05→16:20)
[2024-09-06 20:12] VITALS: BP 118/69; TEMP 97.2; O2SAT 97
[2024-09-06] MEDS: diphenhydrAMINE 50MG/ML VIAL IV PRN (20:24)
[2024-09-07 04:11] VITALS: BP 111/68; TEMP 97.3; O2SAT 95
[2024-09-07 06:18] LABS: ALBUMIN 2.3 G/DL (3.2-5.2); ALKALINE PHOSPHATASE 53 U/L (35-104); ALT/SGPT < 9 U/L (7.0-40); AST/SGOT 8 U/L (<34); BILIRUBIN,TOTAL 0.6 MG/DL (0.3-1.2); BLOOD UREA NITROGEN 6 MG/DL (9-23); CALCIUM LEVEL 8.3 MG/DL (8.5-10.1); CARBON DIOXIDE LEVEL 23 MMOL/L (20-31); CHLORIDE LEVEL 108 MMOL/L (98-107); CREATININE FOR GFR 0.36 MG/DL (0.55-1.30); GLOMERULAR FILTRATION RATE > 60.0 (>60); GLUCOSE, FASTING 96 MG/DL (60-100); POTASSIUM SERUM 3.5 MMOL/L (3.5-5.1); SODIUM LEVEL 140 MMOL/L (136-145); TOTAL PROTEIN 5.3 G/DL (5.7-8.2)
== END 2024-09-07 12:13 | disposition left against medical advice (07) | DRG 566 ==
LOC: M ED 18:41 → M ED INP 09-06 02:05 → M MSPAV 09-06 04:05
PROVIDERS: ADMIT Advanced Practice Midwife; ATTEND Advanced Practice Midwife
DX: O21.0 Mild hyperemesis gravidarum (principal); O99.322 Drug use complicating pregnancy, second trimester; Z3A.24 24 weeks gestation of pregnancy; F12.188 Cannabis abuse with other cannabis-induced disorder; K31.89 Other diseases of stomach and duodenum; O99.612 Diseases of the digestive system complicating pregnancy, second trimester; Z91.040 Latex allergy status; Z91.018 Allergy to other foods; Z88.8 Allergy status to other drugs, medicaments and biological substances; Z91.048 Other nonmedicinal substance allergy status; Z79.899 Other long term (current) drug therapy

== ENCOUNTER → 2024-09-18 | Outpatient (REF) | payer OTHER ==
[~2024-09-18] MED LIST changes: +PROM50TA4 PO
== END ==
LOC: M PLALAB 14:42
PROVIDERS: ATTEND Nurse Practitioner Family
DX: Z53.9 Procedure and treatment not carried out, unspecified reason (principal)

== ENCOUNTER → 2024-09-26 | Outpatient (CLI) | payer OTHER | LOC: M RAD 09:38 | PROVIDERS: ATTEND Nurse Practitioner Family | DX: Z34.80 Encounter for supervision of other normal pregnancy, unspecified trimester (principal); Z3A.28 28 weeks gestation of pregnancy ==

== ENCOUNTER → 2024-09-26 | Outpatient (CLI) | payer OTHER ==
[2024-09-26 13:55] LABS: HEMATOCRIT 33.7 % (36.0-47.0); MEAN CORPUSCULAR HEMOGLOBIN 29.7 pg (27.0-33.0); MEAN CORPUSCULAR HGB CONC 32.6 g/dl (32.0-36.5); MEAN CORPUSCULAR VOLUME 91.1 fl (80.0-96.0); PLATELET COUNT, AUTOMATED 350 10^3/uL (150-450); WHITE BLOOD COUNT 10.7 10^3/uL (4.0-10.0)
[2024-09-26 14:48] LABS: HIV 1&2 SCREEN NEGATIVE (NEGATIVE)
[2024-09-26 14:56] LABS: HEPATITIS C VIRUS ABY INDEX < 0.02 INDEX (<0.8)
[2024-09-26 15:22] LABS: GC DNA AMPLIFICATION NEGATIVE (NEGATIVE)
== END ==
LOC: M PLALAB 10:49
PROVIDERS: ATTEND Nurse Practitioner Family
DX: Z34.80 Encounter for supervision of other normal pregnancy, unspecified trimester (principal)

== ENCOUNTER 2024-10-06 07:13 | Emergency (ER) | payer OTHER ==
[~2024-10-06] VITALS: Ht 157.5 cm; Wt 81.8 kg
[~2024-10-06 07:13] MED LIST changes: +BENA25CA4 PO; +FAMO20TA PO
[2024-10-06 07:18] VITALS: BP 127/64; TEMP 98.9; O2SAT 100
== END 2024-10-06 11:19 | disposition admitted as inpatient to this hospital (09) ==
LOC: M ED 07:13 → EDBD 07:13 → M ED 11:19
DX: Z53.21 Procedure and treatment not carried out due to patient leaving prior to being seen by health care provider (principal)

== ENCOUNTER 2024-10-06 07:28 | Outpatient (CLI) | payer OTHER ==
[~2024-10-06] VITALS: Ht 157.5 cm; Wt 83.0 kg
[2024-10-06 07:42] VITALS: BP 129/81
[2024-10-06] MEDS: LR 1,000 ML IV ONE (08:26)
[2024-10-06] MEDS: ONDANSETRON 4MG 2ML VIAL IV PRN (08:31)
[2024-10-06] MEDS ORDERED: FLEET ENEMA PR PRN (09:05)
[2024-10-06] MEDS: PROMETHAZINE 25MG/ML 1ML VIAL IV PRN ×2 (09:16→15:30)
[2024-10-06] MEDS: LR 1,000 ML IV SCH (09:21)
[2024-10-06 11:55] VITALS: BP 107/55
[2024-10-06] MEDS: METOCLOPRAMIDE INJ 10MG/2ML VIAL IV PRN (14:14)
[2024-10-06 14:49] VITALS: BP 107/57
[2024-10-06 14:55] LABS: HEMATOCRIT 31.4 % (36.0-47.0); HEMOGLOBIN 10.2 g/dl (12.0-15.5); MEAN CORPUSCULAR HEMOGLOBIN 28.7 pg (27.0-33.0); MEAN CORPUSCULAR HGB CONC 32.5 g/dl (32.0-36.5); MEAN CORPUSCULAR VOLUME 88.2 fl (80.0-96.0); PLATELET COUNT, AUTOMATED 371 10^3/uL (150-450); RED BLOOD COUNT 3.56 10^6/uL (4.00-5.40)
[2024-10-06 15:14] LABS: LIPASE 25 U/L (12-53)
[2024-10-06 15:17] LABS: AMYLASE 61 U/L (30-118)
[2024-10-06 15:18] LABS: ALBUMIN 2.7 G/DL (3.2-5.2); ALKALINE PHOSPHATASE 72 U/L (35-104); ALT/SGPT < 9 U/L (7.0-40); AST/SGOT 9 U/L (<34); BILIRUBIN,TOTAL 0.6 MG/DL (0.3-1.2); BLOOD UREA NITROGEN 8 MG/DL (9-23); CALCIUM LEVEL 8.5 MG/DL (8.5-10.1); CARBON DIOXIDE LEVEL 24 MMOL/L (20-31); CHLORIDE LEVEL 104 MMOL/L (98-107); CREATININE FOR GFR 0.38 MG/DL (0.55-1.30); GLOMERULAR FILTRATION RATE > 60.0 (>60); GLUCOSE, FASTING 98 MG/DL (60-100); POTASSIUM SERUM 3.8 MMOL/L (3.5-5.1); SODIUM LEVEL 139 MMOL/L (136-145); TOTAL PROTEIN 6.2 G/DL (5.7-8.2)
[2024-10-06] MEDS: BUTORPHANOL 2 MG/ML 1ML VIAL IV ONE (15:29)
[2024-10-06] MEDS: PANTOPRAZOLE 40MG VIAL IV SCH (17:41)
[2024-10-06 20:14] VITALS: BP 105/53
[2024-10-06] MEDS: diphenhydrAMINE 50MG/ML VIAL IV ONE (20:48)
[2024-10-06 21:14] LABS: APPEARANCE, URINE HAZY (CLEAR); BACTERIA, URINE AUTO 1+ (NEGATIVE); BILIRUBIN, URINE AUTO NEGATIVE (NEGATIVE); BLOOD, URINE BLOOD NEGATIVE (NEGATIVE); COLOR, URINE AMBER (YELLOW); GLUCOSE, URINE (UA) AUTO NEGATIVE (NEGATIVE); KETONE, URINE AUTO 2+ mg/dL (NEGATIVE); LEUKOCYTE ESTERASE, URINE AUTO 2+ (NEGATIVE); MUCUS, URINE LARGE (NEGATIVE); NITRITE, URINE AUTO NEGATIVE (NEGATIVE); PROTEIN, URINE AUTO 2+ mg/dL (NEGATIVE); RBC, URINE AUTO 1 /HPF (0-3); SPECIFIC GRAVITY URINE AUTO 1.026 (1.002-1.035); SQUAMOUS EPITHELIAL CELL UR AU 8 /HPF (0-6); WBC, URINE AUTO 6 /HPF (0-3)
[2024-10-07 00:17] VITALS: BP 112/59
[2024-10-07 04:18] VITALS: BP 97/49
== END 2024-10-07 09:45 | disposition home or self-care (01) ==
LOC: M LDO 07:28
PROVIDERS: ATTEND Specialist
DX: O21.8 Other vomiting complicating pregnancy (principal); O99.323 Drug use complicating pregnancy, third trimester; O26.23 Pregnancy care for patient with recurrent pregnancy loss, third trimester; O99.343 Other mental disorders complicating pregnancy, third trimester; F41.8 Other specified anxiety disorders; F12.90 Cannabis use, unspecified, uncomplicated; Z3A.28 28 weeks gestation of pregnancy
CPT/HCPCS: 36415; 59025; 80053; 81001; 82150; 83690; 85027; 87086; 96360; 96361; 96374; 96375; 96376; G0463; J0595; J1200; J2405; J2470; J2550; J2765

== ENCOUNTER 2024-10-14 11:14 | Emergency (ER) | payer OTHER ==
[~2024-10-14] VITALS: Ht 157.5 cm; Wt 85.1 kg
[2024-10-14 11:22] VITALS: BP 119/87; TEMP 98; O2SAT 97
[2024-10-14 11:43] LABS: HEMOGLOBIN 10.8 g/dl (12.0-15.5); MEAN CORPUSCULAR HEMOGLOBIN 28.4 pg (27.0-33.0); MEAN CORPUSCULAR HGB CONC 32.7 g/dl (32.0-36.5); MEAN CORPUSCULAR VOLUME 86.8 fl (80.0-96.0); PLATELET COUNT, AUTOMATED 352 10^3/uL (150-450); WHITE BLOOD COUNT 10.9 10^3/uL (4.0-10.0)
[2024-10-14 11:57] LABS: INR 0.97; PARTIAL THROMBOPLASTIN TIME 26.9 SECONDS (24.8-34.2); PROTHROMBIN TIME 13.2 SECONDS (12.5-14.5)
[2024-10-14] MEDS ORDERED: ACET-907 PO (11:59)
[2024-10-14 12:14] LABS: ALBUMIN 2.8 G/DL (3.2-5.2); ALKALINE PHOSPHATASE 88 U/L (35-104); ALT/SGPT 10 U/L (7.0-40); AST/SGOT 11 U/L (<34); BILIRUBIN,TOTAL 0.5 MG/DL (0.3-1.2); BLOOD UREA NITROGEN < 5 MG/DL (9-23); CALCIUM LEVEL 8.5 MG/DL (8.5-10.1); CARBON DIOXIDE LEVEL 23 MMOL/L (20-31); CHLORIDE LEVEL 105 MMOL/L (98-107); CREATININE FOR GFR 0.37 MG/DL (0.55-1.30); GLOMERULAR FILTRATION RATE > 60.0 (>60); GLUCOSE, FASTING 78 MG/DL (60-100); POTASSIUM SERUM 4.1 MMOL/L (3.5-5.1); SODIUM LEVEL 137 MMOL/L (136-145); TOTAL PROTEIN 6.6 G/DL (5.7-8.2)
== END 2024-10-14 12:44 | disposition admitted as inpatient to this hospital (09) ==
LOC: M ED 11:14 → EDBD 11:14 → M ED 12:44
DX: O9A.213 Injury, poisoning and certain other consequences of external causes complicating pregnancy, third trimester (principal); O47.03 False labor before 37 completed weeks of gestation, third trimester; V49.40XA Driver injured in collision with unspecified motor vehicles in traffic accident, initial encounter; Y92.410 Unspecified street and highway as the place of occurrence of the external cause; Y93.89 Activity, other specified; Y99.9 Unspecified external cause status; Z88.8 Allergy status to other drugs, medicaments and biological substances; Z91.048 Other nonmedicinal substance allergy status; Z91.040 Latex allergy status; O99.343 Other mental disorders complicating pregnancy, third trimester; Z3A.31 31 weeks gestation of pregnancy

== ENCOUNTER 2024-10-14 11:41 | Outpatient (CLI) | payer OTHER ==
[~2024-10-14] VITALS: Ht 157.5 cm; Wt 84.1 kg
[2024-10-14 11:59] VITALS: BP 120/68
[2024-10-14] MEDS ORDERED: ACET-907 PO (11:59)
[2024-10-14 13:00] LABS: HEMOGLOBIN 10.4 g/dl (12.0-15.5); MEAN CORPUSCULAR HEMOGLOBIN 28.3 pg (27.0-33.0); MEAN CORPUSCULAR HGB CONC 32.5 g/dl (32.0-36.5); PLATELET COUNT, AUTOMATED 329 10^3/uL (150-450); RED BLOOD COUNT 3.68 10^6/uL (4.00-5.40); WHITE BLOOD COUNT 11.2 10^3/uL (4.0-10.0)
[2024-10-14 13:34] LABS: INR 1.03; PARTIAL THROMBOPLASTIN TIME 26.8 SECONDS (24.8-34.2); PROTHROMBIN TIME 13.8 SECONDS (12.5-14.5)
[2024-10-14 13:49] VITALS: BP 118/78
== END 2024-10-14 16:10 | disposition home or self-care (01) ==
LOC: M LDO 11:41
PROVIDERS: ATTEND Advanced Practice Midwife
DX: Z04.1 Encounter for examination and observation following transport accident (principal); O26.893 Other specified pregnancy related conditions, third trimester; R25.2 Cramp and spasm; Z3A.29 29 weeks gestation of pregnancy; Y92.9 Unspecified place or not applicable; Y93.9 Activity, unspecified; Y99.9 Unspecified external cause status
CPT/HCPCS: 36415; 59025; 85027; 85384; 85610; 85730; G0463

== ENCOUNTER → 2024-10-31 | Outpatient (CLI) | payer OTHER ==
[~2024-10-31] MED LIST changes: +ACET-907 PO
== END ==
LOC: M WHC 10:48
PROVIDERS: ATTEND Nurse Practitioner Family
DX: Z34.83 Encounter for supervision of other normal pregnancy, third trimester (principal); Z3A.31 31 weeks gestation of pregnancy

== ENCOUNTER → 2024-12-03 | Outpatient (REF) | payer OTHER | LOC: M PLALAB 14:55 | PROVIDERS: ATTEND Nurse Practitioner Family | DX: O21.9 Vomiting of pregnancy, unspecified (principal); O99.343 Other mental disorders complicating pregnancy, third trimester; F32.A Depression, unspecified; F41.9 Anxiety disorder, unspecified; F31.9 Bipolar disorder, unspecified; F43.10 Post-traumatic stress disorder, unspecified; O99.323 Drug use complicating pregnancy, third trimester; F12.90 Cannabis use, unspecified, uncomplicated; Z3A.36 36 weeks gestation of pregnancy; Z86.19 Personal history of other infectious and parasitic diseases; Z91.018 Allergy to other foods; Z91.040 Latex allergy status; Z88.8 Allergy status to other drugs, medicaments and biological substances ==

== ENCOUNTER 2024-12-19 17:43 | Inpatient (IN) | payer OTHER ==
[~2024-12-19] VITALS: Ht 157.5 cm; Wt 86.1 kg
[2024-12-19] MEDS ORDERED: LEXA1TAB PO (18:02)
[2024-12-19 18:03] VITALS: BP 109/70
[2024-12-19] MEDS ORDERED: HOME MED LIST COMPLETE! XX SCH (18:05)
[2024-12-19] MEDS: LACTATED RINGER'S 1000 ML IV STA (18:24)
[2024-12-19] MEDS ORDERED: OXYTOCIN DRIP 30 UNITS in IV 1 EA IV PRN (18:25)
[2024-12-19] MEDS ORDERED: LIDOCAINE 1% MDV 20ML VIAL INFIL PRN (18:25)
[2024-12-19] MEDS ORDERED: METHYLERGONOVINE MALEATE 0.2MG/ML 1ML VIAL IM PRN (18:25)
[2024-12-19] MEDS ORDERED: TRANEXAMIC ACID INJection 1,000 MG in NS 100 ML IV PRN (18:25)
[2024-12-19] MEDS ORDERED: CARBOPROST TROMETHAMINE 250 MCG/ML AMP IM PRN (18:25)
[2024-12-19 19:24] LABS: HEMATOCRIT 32.1 % (36.0-47.0); HEMOGLOBIN 10.3 g/dl (12.0-15.5); MEAN CORPUSCULAR HEMOGLOBIN 25.6 pg (27.0-33.0); MEAN CORPUSCULAR HGB CONC 32.1 g/dl (32.0-36.5); MEAN CORPUSCULAR VOLUME 79.7 fl (80.0-96.0); PLATELET COUNT, AUTOMATED 361 10^3/uL (150-450); RED BLOOD COUNT 4.03 10^6/uL (4.00-5.40); WHITE BLOOD COUNT 9.2 10^3/uL (4.0-10.0)
[2024-12-19 19:51] LABS: AMPHETAMINES URINE REFLEX NEGATIVE (NEGATIVE); BARBITURATES URINE REFLEX NEGATIVE (NEGATIVE); BENZODIAZEPINES URINE REFLEX NEGATIVE (NEGATIVE); COCAINE METABOLITE URINE REFLE NEGATIVE (NEGATIVE); METHADONE URINE REFLEX NEGATIVE (NEGATIVE); OPIATES URINE REFLEX NEGATIVE (NEGATIVE); PHENCYCLIDINE URINE REFLEX NEGATIVE (NEGATIVE)
[2024-12-19 19:54] LABS: CANNABINOIDS URINE REFLEX PENDING CONFIRMATION (NEGATIVE)
[2024-12-19 19:56] LABS: HEPATITIS B SURFACE ANTIGEN NEGATIVE (NEGATIVE)
[2024-12-19 20:09] LABS: HIV 1&2 SCREEN NEGATIVE (NEGATIVE)
[2024-12-19 20:17] LABS: HEPATITIS C VIRUS ABY INDEX 0.08 INDEX (<0.8)
[2024-12-19 20:32] VITALS: BP 112/69
[2024-12-19] MEDS: CALCIUM CARBONATE 500 MG CHEW U/D PO PRN (22:32)
[2024-12-19] MEDS: PROMETHAZINE 25MG/ML 1ML VIAL IV ONE (22:33)
[2024-12-19] MEDS: BUTORPHANOL 2 MG/ML 1ML VIAL IV ONE (22:33)
[2024-12-20] VITALS (7 sets, daily range): BP systolic 112–135; BP diastolic 64–86; O2SAT 97–99
[2024-12-20] MEDS: ONDANSETRON 4MG 2ML VIAL IV ONE (03:58)
[2024-12-20] MEDS ORDERED: ACETAMINOPHEN 325 MG TAB PO PRN (06:20)
[2024-12-20] MEDS ORDERED: IBUPROFEN 600MG TAB PO PRN (06:20)
[2024-12-20] MEDS ORDERED: METHYLERGONOVINE MALEATE 0.2 MG TAB PO PRN (06:20)
[2024-12-20] MEDS ORDERED: RHOGAM 300MCG (1500IU) INJ IM SCH (06:20)
[2024-12-20] MEDS ORDERED: MOM 30ML SUSPENSION UDC PO PRN (06:20)
[2024-12-20] MEDS: ANUSOL HC CREAM 30GM TOP PRN (08:06)
[2024-12-20] MEDS: ACETAMINOPHEN 500 MG TAB PO PRN (08:07)
[2024-12-20] MEDS: DIBUCAINE 1% OINTMENT 30GM TOP PRN (08:07)
[2024-12-20] MEDS: PRENATAL VITAMINS CHEWABLE TABLET PO SCH (08:08)
[2024-12-20] MEDS: ONDANSETRON 4MG ORAL DISINTEGRATING TAB PO ONE (14:42)
[2024-12-20] MEDS: IBUPROFEN 800 MG TAB PO PRN (15:49)
[2024-12-20] MEDS: DOCUSATE SODIUM 100MG CAPSULE PO PRN (15:49)
[2024-12-20] MEDS: ONDANSETRON 4MG ORAL DISINTEGRATING TAB SL PRN (19:44)
[2024-12-20] MEDS: CALCIUM CARBONATE 500 MG CHEW U/D PO PRN (20:17)
[2024-12-21 06:15] VITALS: BP 128/66; O2SAT 98
[2024-12-21] MEDS: ESCITALOPRAM OXALATE 10 MG TAB (LEXAPRO) PO SCH (10:17)
[2024-12-21 18:00] VITALS: BP 126/78; O2SAT 96
[2024-12-22 06:00] VITALS: BP 105/56; O2SAT 100
[2024-12-22] MEDS ORDERED: MEASLES,MUMPS,RUBELLA VACCINE INJ (MMR-II) SC.IMMUN ONE (09:00)
[2024-12-22] MEDS ORDERED: ACET-683 PO (11:49)
[2024-12-22] MEDS ORDERED: IBUP80TA PO (11:49)
[2024-12-26 08:08] LABS: Cannabinoid Positive (.); Carboxy THC Conf, MS, UR >300 ng/mL (Cutoff=10)
== END 2024-12-22 15:50 | disposition home or self-care (01) | DRG 560 ==
LOC: M LDO 17:43 → M LDI 18:24 → M OBS 12-20 08:00
PROVIDERS: ADMIT Advanced Practice Midwife; ATTEND Advanced Practice Midwife
PROC: 10E0XZZ Delivery of Products of Conception, External Approach (ICD-10-PCS; principal; 2024-12-20)
PROC: 10907ZC Drainage of Amniotic Fluid, Therapeutic from Products of Conception, Via Natural or Artificial Opening (ICD-10-PCS; 2024-12-20)
DX: O80 Encounter for full-term uncomplicated delivery (principal); Z3A.38 38 weeks gestation of pregnancy; Z37.0 Single live birth

== ENCOUNTER 2025-01-25 21:03 | Emergency (ER) | payer OTHER ==
[~2025-01-25] VITALS: Ht 157.5 cm; Wt 69.7 kg
[~2025-01-25 21:03] MED LIST changes: +ACET-683 PO; +IBUP80TA PO; +LEXA1TAB PO
[2025-01-25] MEDS: ACETAMINOPHEN *IV* 1,000 MG in IV 1 EA IV ONE (22:10)
[2025-01-25 23:33] VITALS: BP 118/71; TEMP 97.6; O2SAT 98
[2025-01-25] MEDS: KETOROLAC TROMETHAMINE 10 MG TAB PO ONE (23:33)
== END 2025-01-25 23:47 | disposition home or self-care (01) ==
LOC: M ED 21:03
DX: S09.90XA Unspecified injury of head, initial encounter (principal); S80.11XA Contusion of right lower leg, initial encounter; V49.40XA Driver injured in collision with unspecified motor vehicles in traffic accident, initial encounter; Y92.9 Unspecified place or not applicable; Y93.9 Activity, unspecified; Y99.9 Unspecified external cause status; F41.9 Anxiety disorder, unspecified; F43.10 Post-traumatic stress disorder, unspecified; Z87.891 Personal history of nicotine dependence; F12.10 Cannabis abuse, uncomplicated; Z79.899 Other long term (current) drug therapy; Z91.89 Other specified personal risk factors, not elsewhere classified; Z91.041 Radiographic dye allergy status; Z91.018 Allergy to other foods; Z88.8 Allergy status to other drugs, medicaments and biological substances
CPT/HCPCS: 70450; 70486; 72125; 73564; 73590; 73610; 84702; 96365; 99284; J0131